=== PATIENT | male | born 1980 | race American Indian/Alaskan Native ===

== ENCOUNTER 2017-07-08 12:55 | Outpatient (CLI) | payer BC ==
[2017-07-08 14:00] LABS: Blood Urea Nitrogen 16 mg/dL (9-20)
--- NOTE | 2017-07-08 15:06 | Cat Scan Report ---
CT SCAN OF THE ABDOMEN AND PELVIS WITH CONTRAST: HISTORY: Unspecified abdominal pain, venous insufficiency. TECHNIQUE: Helical CT in 1.25mm intervals following IV contrast. Sagittal and coronal reconstructions. FINDINGS: The liver is normal in size and is without focal defect. No gallstones or biliary dilatation are noted. The spleen and pancreas demonstrate a normal size and attenuation with no evidence of abnormal mass. The kidneys are normal in size and position with no evidence of hydronephrosis or mass. The adrenal glands are normal. There is no intestinal obstruction or ascites. Normal appendix. The abdominal aorta is normal. No abnormalities are identified within the retroperitoneum or mesentery. There is no evidence of peritoneal air or fluid. There is no evidence of any abnormal masses or fluid collections within the pelvis. No adenopathy is identified. The bladder is normal. IMPRESSION: Unremarkable CT scan of the abdomen and pelvis with contrast.
== END 2017-07-08 12:56 | disposition home or self-care (01) ==
LOC: CT 12:55
PROVIDERS: ATTEND Radiology Diagnostic Radiology
DX: I87.2 Venous insufficiency (chronic) (peripheral) (principal); I87.1 Compression of vein; R10.9 Unspecified abdominal pain
CPT/HCPCS: 36415; 74177; 82565; 84520; Q9967

== ENCOUNTER 2017-08-15 08:25 | Outpatient (CLI) | payer BC ==
--- NOTE | 2017-08-15 14:20 | Ultrasound Report ---
ULTRASOUND SCROTAL INDICATION: Varicocele. COMPARISON: 07/08/2017 CT. FINDINGS: Longitudinal and transverse grayscale and color flow sonographic evaluation of the scrotum and its contents demonstrates normal testicular contour and echotexture bilaterally without suspicious intrinsic lesions. Preserved bilateral blood flow. Right testicle estimated at 4.4 x 3.2 x 3.3 cm while the left testicle is 4.6 x 2.8 x 3.1 cm. Small bilateral hydroceles with a septation on the right possible as on image 47. Right epididymis is 1.3 x 1.1 cm. Left epididymis approximately 1.6 x 1 cm as on image 33 and demonstrates 3 small epididymal head cysts measuring up to 6 mm as on images 35-39. CONCLUSION: Small bilateral hydroceles and left epididymal head cysts without acute testicular sonographic abnormality, as described. Please correlate. Thank you for the opportunity to participate in this patient's care.
== END 2017-08-15 08:26 | disposition home or self-care (01) ==
LOC: US 08:25
PROVIDERS: ATTEND Radiology Diagnostic Radiology
DX: N50.3 Cyst of epididymis (principal); N43.3 Hydrocele, unspecified; I86.1 Scrotal varices
CPT/HCPCS: 93975